=== PATIENT | male | born 1945 | race Caucasian/White ===

== ENCOUNTER 2018-07-19 10:22 | Emergency (ER) | payer MEDICARE, OTHER ==
--- NOTE | 2018-07-19 10:51 | ERPHSYRPT ---
- History of Present Illness Time Seen by Provider: 07/19/18 10:50 Historian: patient Exam Limitations: no limitations Patient Subjective Stated Complaint: PT HERE FOR CHEST PAIN TO CENTER OF CHEST, WITH NO NAUSEA OR SOB, HE STATES HELPED LAST NIGHT TO SLEEP IN CHAIR Triage Nursing Assessment: PT ALERT, RESP EASY, CHEST CLEAR, ABD SOFT,NO EDEMA Physician History: The patient is a 72-year-old male with his complaining of an onset of mild central chest pressure 2 nights ago at 4:30 in the morning that lasted 2 hours. He denied shortness of breath, nausea, or sweating, the same mild central chest pressure began again yesterday evening. He sat up in a chair all night because it felt better. Once again he denied shortness of breath, nausea, or sweating. At maximum over the past 2 days the chest pain was 3 out of 10. Currently his chest pain is 1 out of 10. He has taking nothing to try to relieve the pain. He is in no distress at all this time. He has not seen a doctor for several decades. He takes no prescription medicines. He had pneumonia over a year ago. Timing/Duration: yesterday, sudden, improved Activities at Onset: rest Quality: pressure Location: central Chest Pain Radiation: no radiation Severity of Pain-Max: mild Severity of Pain-Current: mild Modifying Factors: Improves With: nothing Associated Symptoms: denies symptoms Prior Chest Pain/Cardiac Workup: no prior chest pain Nitro Today/Relief: no nitro taken today Aspirin Treatment Today: no aspirin today Allergies/Adverse Reactions: No Known Drug Allergies Allergy (Unverified 07/19/18 10:34) Home Medications: No Reportable Medications [No Reported Medications] 07/19/18 [History] Hx Tetanus, Diphtheria Vaccination/Date Given: Yes Hx Influenza Vaccination/Date Given: No Hx Pneumococcal Vaccination/Date Given: No Immunizations Up to Date: Yes - Review of Systems Constitutional: No Fever, No Chills Eyes: No Symptoms Ears, Nose, & Throat: No Symptoms Respiratory: No Cough, No Dyspnea Cardiac: Chest Pain Abdominal/Gastrointestinal: No Abdominal Pain, No Nausea, No Vomiting, No Diarrhea Genitourinary Symptoms: No Dysuria Musculoskeletal: No Back Pain, No Neck Pain Skin: No Rash Neurological: No Dizziness, No Focal Weakness, No Sensory Changes Psychological: No Symptoms Endocrine: No Symptoms Hematologic/Lymphatic: No Symptoms Immunological/Allergic: No Symptoms All Other Systems: Reviewed and Negative - Past Medical History Pertinent Past Medical History: No - Past Surgical History Past Surgical History: Yes Other Surgical History: RIGHT EYE REMOVED - Social History Smoking Status: Never smoker Exposure to second hand smoke: No Drug Use: none Patient Lives Alone: No - Nursing Vital Signs Nursing Vital Signs: Initial Vital Signs Temperature 98.5 F 07/19/18 10:23 Pulse Rate 68 07/19/18 10:23 Respiratory Rate 16 07/19/18 10:23 Blood Pressure 144/77 07/19/18 10:23 O2 Sat by Pulse Oximetry 9 L 07/19/18 10:23 Pain Scale Pain Intensity 0 - Physical Exam General Appearance: no apparent distress, alert Eye Exam: PERRL/EOMI, eyes nml inspection Ears, Nose, Throat Exam: normal ENT inspection, moist mucous membranes Neck Exam: normal inspection, non-tender, supple, full range of motion Respiratory Exam: normal breath sounds, lungs clear, No respiratory distress Cardiovascular Exam: regular rate/rhythm, normal heart sounds Gastrointestinal/Abdomen Exam: soft, No tenderness, No mass Rectal Exam: not done Back Exam: normal inspection, No CVA tenderness, No vertebral tenderness Extremity Exam: normal inspection, normal range of motion Neurologic Exam: alert, oriented x 3, cooperative, normal mood/affect, sensation nml, No motor deficits Skin Exam: normal color, warm, dry SpO2 Interpretation: normal SpO2: 9 Oxygen Delivery: Room Air - Course EKG Interpreted by Me: RATE, Sinus Rhythm, NORMAL INTERVALS, Right Bundle Branch Block - Radiology Exams Chest X-ray Interpretation: Reviewed by me, Teleradiologist Report (per Dr Becker), Negative Ordered Tests: Active Orders 24 hr Category Date Time Status D[facility] [employer]ger STAT Care 07/19/18 11:12 Active EKG-ER Only STAT Care 07/19/18 11:11 Active IV Insertion STAT Care 07/19/18 11:11 Active CHEST 2 VIEWS (PA AND LAT) Stat Exams 07/19/18 11:12 Completed CBC W DIFF Stat Lab 07/19/18 10:00 Completed CMP Stat Lab 07/19/18 10:00 Completed D-DIMER QUANTITATION Stat Lab 07/19/18 10:00 Completed NT PRO BNP Stat Lab 07/19/18 10:00 Completed TROPONIN Q3H Lab 07/19/18 10:00 Completed TROPONIN Q3H Lab 07/19/18 14:15 Ordered TROPONIN Q3H Lab 07/19/18 17:15 Ordered TROPONIN Q3H Lab 07/19/18 20:15 Ordered TROPONIN Q3H Lab 07/19/18 23:15 Ordered Medication Summary Discontinued Medications Generic Name Dose Route Start Last Admin Trade Name Anna PRN Reason Stop Dose Admin Al Hydrox/Mg Hydrox/Simethicone Confirm 07/19/18 11:39 Maalox Es 30 Ml Unit Dose Administered 07/19/18 11:40 Dose 30 ml .ROUTE .STK-MED ONE Aspirin 324 mg 07/19/18 11:11 07/19/18 11:42 Baby Aspirin 81 Mg Chew PO 07/19/18 11:12 324 mg STAT ONE Administration Aspirin Confirm 07/19/18 11:38 Baby Aspirin 81 Mg Chew Administered 07/19/18 11:39 Dose 324 mg .ROUTE .STK-MED ONE Famotidine 20 mg 07/19/18 11:11 07/19/18 11:42 Pepcid 20 Mg Vial IV 07/19/18 11:12 20 mg STAT ONE Administration Famotidine Confirm 07/19/18 11:38 Pepcid 20 Mg Vial Administered 07/19/18 11:39 Dose 20 mg IV .STK-MED ONE Ketorolac Tromethamine 30 mg 07/19/18 11:13 07/19/18 11:41 Toradol 30 Mg Injection IV 07/19/18 11:14 30 mg STAT ONE Administration Ketorolac Tromethamine Confirm 07/19/18 11:38 Toradol 30 Mg Injection Administered 07/19/18 11:39 Dose 30 mg .ROUTE .STK-MED ONE Lidocaine HCl Confirm 07/19/18 11:39 Xylocaine Hcl Viscous * Administered 07/19/18 11:40 Dose 15 ml .ROUTE .STK-MED ONE Magnesium Hydroxide 45 ml 07/19/18 11:13 07/19/18 11:42 Gi Cocktail 45 Ml (Maalox/Lidocaine) PO 07/19/18 11:14 45 ml STAT ONE Administration Lab/Rad Data: Laboratory Result Diagrams 07/19/18 10:00 07/19/18 10:00 Laboratory Results 07/19/18 07/19/18 07/19/18 Range/Units 10:00 10:00 10:00 WBC (4.0-10.5) K/mm3 RBC (4.1-5.6) M/mm3 Hgb (12.5-18.0) gm/dl Hct (42-50) % MCV (78-100) fl MCH (26-32) pg MCHC (32-36) g/dl RDW (11.5-14.0) % Plt Count (150-450) K/mm3 MPV (6-9.5) fl Gran % (36.0-66.0) % Eos # (Auto) (0-0.5) Absolute Lymphs (auto) (1.0-4.6) Absolute Monos (auto) (0.0-1.3) Lymphocytes % (24.0-44.0) % Monocytes % (0.0-12.0) % Eosinophils % (0.00-5.0) % Basophils % (0.0-0.4) % Absolute Granulocytes (1.4-6.9) Basophils # (0-0.4) D-Dimer 215 (215-500) ng/mL Sodium 142 (137-145) mmol/L Potassium 3.8 (3.5-5.1) mmol/L Chloride 105 (98-107) mmol/L Carbon Dioxide 24 (22-30) mmol/L Anion Gap 16.2 H (5-15) MEQ/L BUN 18 (9-20) mg/dL Creatinine 0.98 (0.66-1.25) mg/dL Estimated GFR > 60.0 ML/MIN Glucose 181 H (74-106) mg/dL Calcium 9.5 (8.4-10.2) mg/dL Total Bilirubin 0.60 (0.2-1.3) mg/dL AST 92 H (17-59) U/L ALT 44 (0-50) U/L Alkaline Phosphatase 87 (38-126) U/L Troponin I 5.080 H* (0.000-0.034) ng/mL NT-Pro-B Natriuret Pep 903 H (0-900) pg/mL Serum Total Protein 7.3 (6.3-8.2) g/dL Albumin 4.5 (3.5-5.0) g/dL 07/19/18 Range/Units 10:00 WBC 7.8 (4.0-10.5) K/mm3 RBC 4.04 L (4.1-5.6) M/mm3 Hgb 12.5 (12.5-18.0) gm/dl Hct 36.4 L (42-50) % MCV 90.1 (78-100) fl MCH 30.9 (26-32) pg MCHC 34.3 (32-36) g/dl RDW 13.9 (11.5-14.0) % Plt Count 210 (150-450) K/mm3 MPV 10.3 H (6-9.5) fl Gran % 70.4 H (36.0-66.0) % Eos # (Auto) 0.09 (0-0.5) Absolute Lymphs (auto) 1.53 (1.0-4.6) Absolute Monos (auto) 0.68 (0.0-1.3) Lymphocytes % 19.5 L (24.0-44.0) % Monocytes % 8.7 (0.0-12.0) % Eosinophils % 1.1 (0.00-5.0) % Basophils % 0.3 (0.0-0.4) % Absolute Granulocytes 5.52 (1.4-6.9) Basophils # 0.02 (0-0.4) D-Dimer (215-500) ng/mL Sodium (137-145) mmol/L Potassium (3.5-5.1) mmol/L Chloride (98-107) mmol/L Carbon Dioxide (22-30) mmol/L Anion Gap (5-15) MEQ/L BUN (9-20) mg/dL Creatinine (0.66-1.25) mg/dL Estimated GFR ML/MIN Glucose (74-106) mg/dL Calcium (8.4-10.2) mg/dL Total Bilirubin (0.2-1.3) mg/dL AST (17-59) U/L ALT (0-50) U/L Alkaline Phosphatase (38-126) U/L Troponin I (0.000-0.034) ng/mL NT-Pro-B Natriuret Pep (0-900) pg/mL Serum Total Protein (6.3-8.2) g/dL Albumin (3.5-5.0) g/dL - Progress Progress: improved Counseled pt/family regarding: lab results, diagnosis, rad results - Departure Time of Disposition: 13:11 Departure Disposition: Transfer (transfer to [facility] per Dr Adams, apartment coordinator.) Clinical Impression: Chest pain, Elevated troponin Condition: Stable Critical Care Time: No Referrals: Provider,Unknown [NON-STAFF PHY W/O PRIVILEGES] -
[2018-07-19] MEDS ORDERED: Pepcid 20 MG VIAL IV ONE ×2 (11:11→11:38)
[2018-07-19] MEDS ORDERED: BABY ASPIRIN 81 MG CHEW PO ONE (11:11)
[2018-07-19] MEDS ORDERED: GI COCKTAIL 45 ML (Maalox/Lidocaine) PO ONE (11:13)
[2018-07-19] MEDS ORDERED: TORAdol 30 mg Injection IV ONE (11:13)
[2018-07-19 11:23] LABS: BASOPHIL % 0.3 % (0.0-0.4); Basophil (Absolute #) 0.02 (0-0.4); Eosinophil % 1.1 % (0.00-5.0); Eosinophil (Absolute #) 0.09 (0-0.5); Granulocyte Absolute (ANC) 5.52 (1.4-6.9); Granulocytes % 70.4 % (36.0-66.0); Hematocrit 36.4 % (42-50); Hemoglobin 12.5 gm/dl (12.5-18.0); Lymphocyte (Absolute #) 1.53 (1.0-4.6); Lymphocytes % 19.5 % (24.0-44.0); Mean Cell Volume 90.1 fl (78-100); Mean Corpuscular Hemoglobin 30.9 pg (26-32); Mean Corpuscular Hgb Concent. 34.3 g/dl (32-36); Mean Platelet Volume 10.3 fl (6-9.5); Monocyte (Absolute #) 0.68 (0.0-1.3); Monocytes % 8.7 % (0.0-12.0); Platelet Count 210 K/mm3 (150-450); Red Blood Count 4.04 M/mm3 (4.1-5.6); Red Cell Distribution Width 13.9 % (11.5-14.0); White Blood Count 7.8 K/mm3 (4.0-10.5)
[2018-07-19] MEDS ORDERED: TORAdol 30 mg Injection ONE (11:38)
[2018-07-19] MEDS ORDERED: BABY ASPIRIN 81 MG CHEW ONE (11:38)
[2018-07-19] MEDS ORDERED: MAALOX ES 30 ML UNIT DOSE ONE (11:39)
[2018-07-19] MEDS ORDERED: XYLOCAINE HCl Viscous ONE (11:39)
--- NOTE | 2018-07-19 11:43 | XRAY ---
Indication: Chest pain. Comparison: October 14, 2016. PA/lateral chest demonstrates normal heart, lungs, and bony thorax with stable tiny right lung calcified granuloma. No new/acute findings.
[2018-07-19 11:54] LABS: ALBUMIN 4.5 g/dL (3.5-5.0); ALKALINE PHOSPHATASE 87 U/L (38-126); ANION GAP 16.2 MEQ/L (5-15); BLOOD UREA NITROGEN 18 mg/dL (9-20); CHLORIDE 105 mmol/L (98-107); Calcium 9.5 mg/dL (8.4-10.2); Carbon Dioxide 24 mmol/L (22-30); Creatinine 1 0.98 mg/dL (0.66-1.25); Glucose 181 mg/dL (74-106); NT PRO BNP 903 pg/mL (0-900); Potassium 3.8 mmol/L (3.5-5.1); SGOT/AST 92 U/L (17-59); SGPT/ALT 44 U/L (0-50); SODIUM 142 mmol/L (137-145); Total Protein 7.3 g/dL (6.3-8.2)
[2018-07-19 15:05] VITALS: BP 115/59; O2SAT 97
[2018-07-19 15:53] VITALS: PULSE 54
== END 2018-07-19 16:09 | disposition short-term general hospital (02) ==
LOC: ED 10:22
DX: R07.9 Chest pain, unspecified (principal); R77.8 Other specified abnormalities of plasma proteins
CPT/HCPCS: 36000; 36415; 71046; 80053; 83880; 84484; 85025; 85379; 93005; 93041; 96374; 96375; 99285; J1885; A9270-GY